=== PATIENT | male | born 1940 | race Caucasian/White ===

== ENCOUNTER 2021-12-08 16:01 | Outpatient (CLI) | payer MEDICARE, SELFPAY ==
[2021-12-08 21:40] LABS: Chloride* 101 mmol/L (96-114); Potassium* 4.8 mmol/L (3.6-5.1); Sodium* 138 mmol/L (135-149)
[2021-12-08 21:43] LABS: Blood Urea Nitrogen* 22 mg/dL (7-30); Carbon Dioxide* 27 mmol/L (20-32); Creatinine* 0.8 mg/dL (0.5-1.5); Estimated Glomerular Filt Rate 88 ml/min; Glucose* 149 mg/dL (60-115)
[2021-12-08 21:44] LABS: Calcium* 9.4 mg/dL (8.4-10.6)
== END 2021-12-08 16:02 | disposition home or self-care (01) ==
PROVIDERS: PCP Family Medicine; Visit Provider Family Medicine
DX: E11.9 Type 2 diabetes mellitus without complications (principal); E78.5 Hyperlipidemia, unspecified; Z79.01 Long term (current) use of anticoagulants
CPT/HCPCS: 80048

== ENCOUNTER 2021-12-16 14:33 | Outpatient (CLI) | payer MEDICARE, SELFPAY ==
--- NOTE | 2021-12-16 15:00 | CRLHL7_ITS ---
For Patients: As a result of the Cures Act, medical imaging exams and procedure reports are released immediately into your electronic medical record. You may view this report before your referring provider. If you have questions, please contact your health care provider. BILATERAL CAROTID ULTRASOUND 12/16/2021 INDICATION: Recent diplopia. TECHNIQUE: The carotid circulations and the vertebral arteries in the neck were examined with armijo-scale ultrasound, color-flow and Doppler spectral analysis. Degrees of stenosis were determined using SRU 2002 Consensus Panel Criteria. COMPARISON: None. FINDINGS: Peak Systolic Velocity Right Left Distal CCA 63 59 Proximal ICA 50 30 Mid ICA 45 38 Distal ICA 46 40 ICA/CCA Ratio 0.8 0.7 Vertebral Artery Antegrade 41 47 Right carotid: Atherosclerotic plaque in the right carotid bulb extending into the proximal external and internal carotid arteries. No elevated velocities. Normal ICA:CCA ratio. Antegrade flow in the vertebral artery. There is linear calcification in the proximal common carotid artery. Left carotid: Atherosclerotic calcification in the left carotid bulb extending into the proximal external and internal carotid arteries. No elevated velocities. ICA/CCA ratio is normal. Antegrade flow in the vertebral artery. IMPRESSION: 1. 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 2. 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 Could consider CT angiogram of the neck if indicated. Faustino Bull M.D. Diagnostic/Musculoskeletal Radiologist [email or web address] CHRISTIAN/arvind / be/Dictated by: Faustino Bull MD @ 12/16/2021 7:30:00 PM (Electronically Signed)
== END 2021-12-16 14:34 | disposition home or self-care (01) ==
LOC: US 14:35
PROVIDERS: PCP Family Medicine; Visit Provider Family Medicine
DX: H53.2 Diplopia (principal); I65.23 Occlusion and stenosis of bilateral carotid arteries
CPT/HCPCS: 93880

== ENCOUNTER 2021-12-25 15:11 | Outpatient (CLI) | payer MEDICARE, SELFPAY ==
--- NOTE | 2021-12-25 15:30 | CRLHL7_ITS ---
For Patients: As a result of the Century Cures Act, medical imaging exams and procedure reports are released immediately into your electronic medical record. You may view this report before your referring provider. If you have questions, please contact your health care provider. INDICATION: Diplopia TECHNIQUE: Noncontrast Sagittal T1,Axial FSE T2, Flair, DWI images submitted. No comparisons. FINDINGS: [id number] cerebral atrophy. The ventricles, sulci and gyri are of normal size, shape and contour for age and degree of atrophy. Midline structures are centrally located. No convincing evidence of suspicious intra- or extra-axial fluid collections. Mild to moderate patchy regions of increased T2 signal within the periventricular and subcortical white matter of both cerebral hemispheres. 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 The globes bilaterally have a mildly dysmorphic appearance that may represent prior surgical intervention. No regions of restricted diffusion. IMPRESSION: 1. No radiographic evidence of acute intracranial abnormalities. 2. Mild to moderate cerebral atrophy. 3. Mild to moderate supratentorial white matter changes that are non-specific, but statistically most likely related to chronic small vessel ischemic disease. 4. 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 Dictated by Luis Lee MD @ 12/25/2021 5:20:06 PM (Electronically Signed)
== END 2021-12-25 15:12 | disposition home or self-care (01) ==
LOC: MRI 15:11
PROVIDERS: PCP Family Medicine; Visit Provider Family Medicine
DX: H53.2 Diplopia (principal); G31.9 Degenerative disease of nervous system, unspecified; I63.9 Cerebral infarction, unspecified
CPT/HCPCS: 70551

== ENCOUNTER 2021-12-31 13:21 | Outpatient (RCR) | payer MEDICARE, SELFPAY ==
--- NOTE | 2021-12-31 16:47 | PT.OPE ---
PT [place] [facility] PT [facility] Eval Start: 12/31/21 12:40 Freq: Status: Active Protocol: Document 12/31/21 16:42 CJT (Rec: 12/31/21 16:45 CJT [id number]) E-signed By Clayton Veliz PT Physical Therapy Outpatient Evaluation Insurance Information Recert Due Date 02/11/22 Insurance Name Medicare B Medical Diagnosis R42 - dizziness and giddiness Treating Diagnosis R42 - light headedness Referring En Delcid MD Subjective Subjective Pt is an 81 year old male who presents to OP PT clinic with his [place] with complaints of dizziness/lightheadedness. Pt notes that his sx come on at random and last approx 1 minute. Thinks maybe they are due to looking downward. Last happened when he was sitting with his friends for coffee and all of a sudden he felt a bit off and light headed but just waited it out and his symptoms resolved. Pt denies room-spinning dizziness. Pt is on several medications for blood pressure and has a check up with his global president in approx 10 days. Pts showed him the Sandra maneuver and he reports that he felt better while doing this. Pt also complains of double vision at times. Has history of cataract surgery, atrial valve replacement/repair. Date of Last Physician Visit 12/19/21 Current Work Status Retired Preferred Name Joni Precautions Therapy Limitations/Systems Review Not Limited Objective Range of Motion Cervical ROM Extension - 51 Flexion - 46 R/L Sidebend - 15/22 R/L Rotation - 55/55 Balance & Gait Romberg: -Eyes open, firm surface - normal -Eyes closed, firm surface - minimal sway -Eyes open, foam surface - minimal sway -Eyes closed, foam surface - LOB x 2 Other/Pertinent Objective Oculomotor testing: head thrust positive for nystagmus (8-10 beats); all other oculomotor testing is negative for nystagmus and reports of dizziness Peripheral vision: worse on L than R Positional Testing: -R [place]pike - negative -L [place]pike - negative -R Roll - negative -L Roll - negative Blood Pressure (Sitting): 175/ 88, 161/82 Blood Pressure (Standing): 177 /84 Pulse: several episodes of interruption of NSR lasting 2- 4 seconds Assessment Assessment/Impression Pt is an 81 year old female who presents to OP PT clinic with his [place] with complaints of dizziness/ lightheadedness. Pt notes that his sx come on at random and last approx 1 minute. He denies room-spinning dizziness and is unable to determine if specific movements trigger his symptoms. Positional testing was negative today for nystagmus and reports of dizziness. Oculomotor testing resulted in nystagmus with head thrust test but pt denied dizziness during. Pts cervical spine is not tender to palpation at this time so cervicogenic dizziness is doubtful. ROM in cervical spine is limited but I think this is likely due to arthritis as he has hard end feel with side bending. Pt did have several pauses in his pulse when checked today. Blood pressure was higher than he usually measures but unchanged with going from sitting to standing. At this time I don't feel that Joni's symptoms will benefit from physical therapy. I recommended to he and his that they consult his global president and request an extended EKG to detect if these pauses in his heart rhythm could be causing his sensation of lightheadedness. In the meantime, I will place Joni's chart on hold. He may return to our clinic if he has a bout of dizziness and may call if he has questions. I have asked Joni if I may call him when he has the results from his global president and he accepts. Plan of Care Rehabilitation Potential Not Applicable Physical Therapy Goals N/A Evaluation Billing Untimed Code Treatment Minutes 63 PT Eval No Charge No Complexity Low Certification Information Initial Certification Date 12/31/21 Ending Certification Date 02/11/22 Provider Signature Shows Agreement With POC & Medical Necessity Physician Comment/Change Comment or Changes Physician NPI Number #
== END 2022-02-05 09:57 | disposition home or self-care (01) ==
PROVIDERS: PCP Family Medicine; Visit Provider Family Medicine
DX: R42 Dizziness and giddiness (principal); Z51.89 Encounter for other specified aftercare
CPT/HCPCS: 97161

== ENCOUNTER 2022-10-13 11:15 | Outpatient (CLI) | payer MEDICARE, SELFPAY | END 2022-10-13 11:16 | disposition home or self-care (01) | LOC: NFLDREF 22:06 | PROVIDERS: PCP Family Medicine; Referring Provider Family Medicine; Visit Provider Family Medicine | DX: I10 Essential (primary) hypertension (principal); E11.69 Type 2 diabetes mellitus with other specified complication; E78.5 Hyperlipidemia, unspecified; R97.20 Elevated prostate specific antigen [PSA]; E11.9 Type 2 diabetes mellitus without complications | CPT/HCPCS: 80053; 80061; 82043; 82570; 84153 ==

== ENCOUNTER 2023-03-16 13:15 | Outpatient (CLI) | payer MEDICARE, SELFPAY | END 2023-03-16 13:16 | disposition home or self-care (01) | LOC: NFLDREF 03-17 06:51 | PROVIDERS: PCP Family Medicine; Referring Provider Family Medicine; Visit Provider Family Medicine | DX: N40.0 Benign prostatic hyperplasia without lower urinary tract symptoms (principal); Z12.5 Encounter for screening for malignant neoplasm of prostate | CPT/HCPCS: 84153 ==

== ENCOUNTER 2023-08-05 14:08 | Outpatient (CLI) | payer MEDICARE, SELFPAY ==
[2023-08-05 17:14] LABS: PSA Screen* 9.47 ng/mL (0.10-4.00)
== END 2023-08-05 14:09 | disposition home or self-care (01) ==
LOC: LAB 14:14
PROVIDERS: PCP Family Medicine; Referring Provider Urology; Visit Provider Urology
DX: R97.20 Elevated prostate specific antigen [PSA] (principal); E11.9 Type 2 diabetes mellitus without complications; Z79.84 Long term (current) use of oral hypoglycemic drugs
CPT/HCPCS: 36415; 80053; 80061; 82043; 82570; G0103

== ENCOUNTER 2023-09-06 08:58 | Outpatient (CLI) | payer MEDICARE, SELFPAY ==
--- NOTE | 2023-09-06 10:46 | W.ANESCHARGE ---
Anesthesia Charges Start Date/Time Anesthesia Start Date: 09/06/23 Anesthesia Start Time: 10:00 Stop Date/Time Anesthesia Stop Date: 09/06/23 Anesthesia Stop Time: 10:43
--- NOTE | 2023-09-06 11:43 | W.ANESCHARGE ---
Anesthesia Charges Start Date/Time Anesthesia Start Date: 09/06/23 Anesthesia Start Time: 10:00 Stop Date/Time Anesthesia Stop Date: 09/06/23 Anesthesia Stop Time: 10:43 Summary Extremes of Age - Over 70 or under 1: MDA
== END 2023-09-06 08:59 | disposition home or self-care (01) ==
LOC: OP CLINIC 08:59
PROVIDERS: PCP Family Medicine; Visit Provider Surgery
DX: Z12.11 Encounter for screening for malignant neoplasm of colon (principal); K63.5 Polyp of colon; K62.1 Rectal polyp; Z86.010 Personal history of colon polyps
CPT/HCPCS: 00811; 45385; 88305; 99100; J2704

== ENCOUNTER 2023-11-08 22:35 | Outpatient (REF) | payer MEDICARE, SELFPAY ==
[2023-11-09 03:24] LABS: PSA Screen* 7.49 ng/mL (0.10-4.00)
== END 2023-11-08 22:36 | disposition home or self-care (01) ==
LOC: NPINS 22:35
PROVIDERS: PCP Family Medicine; Visit Provider Urology
DX: Z12.5 Encounter for screening for malignant neoplasm of prostate (principal); R97.20 Elevated prostate specific antigen [PSA]
CPT/HCPCS: G0103

== ENCOUNTER 2024-04-13 13:03 | Outpatient (CLI) | payer MEDICARE, SELFPAY | END 2024-04-13 13:04 | disposition home or self-care (01) | PROVIDERS: PCP Family Medicine; Visit Provider Family Medicine | DX: D64.9 Anemia, unspecified (principal); E53.8 Deficiency of other specified B group vitamins; I10 Essential (primary) hypertension; Z12.5 Encounter for screening for malignant neoplasm of prostate | CPT/HCPCS: 80053; 82607; 82728; G0103 ==

== ENCOUNTER 2024-08-22 12:05 | Outpatient (CLI) | payer MEDICARE, SELFPAY | END 2024-08-22 12:06 | disposition home or self-care (01) | LOC: NFLDREF 08-25 01:47 | PROVIDERS: PCP Family Medicine; Referring Provider Family Medicine; Visit Provider Family Medicine | DX: D64.9 Anemia, unspecified (principal); I10 Essential (primary) hypertension; R42 Dizziness and giddiness; E11.9 Type 2 diabetes mellitus without complications; R97.20 Elevated prostate specific antigen [PSA] | CPT/HCPCS: 80053; 80061; 82043; 82570; 84153; 84154 ==

== ENCOUNTER 2024-09-27 09:09 | Outpatient (CLI) | payer MEDICARE, SELFPAY | END 2024-09-27 09:10 | disposition home or self-care (01) | LOC: NFLDREF 09-28 22:02 | PROVIDERS: PCP Family Medicine; Referring Provider Family Medicine; Visit Provider Family Medicine | DX: I10 Essential (primary) hypertension (principal); E11.9 Type 2 diabetes mellitus without complications; E78.5 Hyperlipidemia, unspecified; R97.20 Elevated prostate specific antigen [PSA]; D64.9 Anemia, unspecified; N40.0 Benign prostatic hyperplasia without lower urinary tract symptoms; Z12.5 Encounter for screening for malignant neoplasm of prostate | CPT/HCPCS: 80053; 80061; 82043; 82570; 82607; G0103 ==

== ENCOUNTER 2024-10-02 09:09 | Outpatient (CLI) | payer MEDICARE, SELFPAY | END 2024-10-02 09:10 | disposition home or self-care (01) | LOC: NFLDREF 10-06 01:19 | PROVIDERS: PCP Family Medicine; Referring Provider Family Medicine; Visit Provider Family Medicine | DX: D64.9 Anemia, unspecified (principal); I10 Essential (primary) hypertension; E11.69 Type 2 diabetes mellitus with other specified complication; E78.5 Hyperlipidemia, unspecified; R97.20 Elevated prostate specific antigen [PSA]; N40.0 Benign prostatic hyperplasia without lower urinary tract symptoms | CPT/HCPCS: 83540 ==

== ENCOUNTER 2024-12-06 09:02 | Outpatient (CLI) | payer MEDICARE, SELFPAY ==
[2024-12-06 14:58] LABS: PSA Diagnostic* 8.76 ng/mL (0.10-4.00)
== END 2024-12-06 09:03 | disposition home or self-care (01) ==
LOC: NPINS 09:03
PROVIDERS: PCP Family Medicine; Visit Provider Urology
DX: R97.20 Elevated prostate specific antigen [PSA] (principal)
CPT/HCPCS: 84153

== ENCOUNTER 2025-04-06 14:12 | Outpatient (CLI) | payer MEDICARE, SELFPAY | END 2025-04-06 14:13 | disposition home or self-care (01) | LOC: LKVREF 14:12 | PROVIDERS: PCP Family Medicine; Visit Provider Family Medicine | DX: E11.69 Type 2 diabetes mellitus with other specified complication (principal); E78.5 Hyperlipidemia, unspecified; D64.9 Anemia, unspecified; I25.10 Atherosclerotic heart disease of native coronary artery without angina pectoris; I10 Essential (primary) hypertension | CPT/HCPCS: 83540; 83550 ==